=== PATIENT | female | born 1935 | race Caucasian/White ===

== ENCOUNTER 2021-04-01 15:34 | Inpatient (IN) | payer MEDICARE, BC, OTHER ==
[~2021-04-01] VITALS: Ht 167.6 cm; Wt 86.8 kg
[~2021-04-01 15:34] MED LIST: ACET325T9 PO; AMIO200T6 PO; ASCO500T3 PO; ASPI-886 PO; ATOR40TA59 PO; BUPR150T15 PO; CALC625T44 PO; CARV6.2511 PO; CYCL1DRO OP; DICY20TA30 PO; FERR325T14 PO; FURO20TA3 PO; LEVO88TA4 PO; MAGN296S68 PO; MAGN400T5 PO; MOXI3DRO22 OP; NITR50CA11 PO; PANT40TA77 PO; POTA20TA12 PO; TEMA30CA6 PO; TRAM50TA PO; VERA240C2 PO; WARF-31 PO
[2021-04-01] MEDS ORDERED: fentaNYL PF VIAL 100 MCG/2 ML VIAL IVP PRN (18:30)
[2021-04-01] MEDS ORDERED: ONDANSETRON ODT 4 MG TAB.RAPDIS. PO PRN (18:30)
[2021-04-01] MEDS ORDERED: PROP15DR EACHEYE (18:34)
[2021-04-01 19:15] VITALS: BP 149/62
[2021-04-01] MEDS: PATCH REMOVAL. MC SCH (21:00)
[2021-04-01] MEDS ORDERED: POLYVINYL ALCOHOL 1.4% OPHTH SOLUTION 15ML BOTTLE. OU SCH (21:00)
--- NOTE | 2021-04-01 21:00 | NUR ---
ADMIT NOTE The patient, BOO MARTINEZ, 85 y/o, F admitted by JEF LIANG MD, was given written information regarding hospital policies, unit procedures and contact persons. Patient transferred from [facility]; orders received from . Patient orientated to unit, admit packet reviewed and plan of care discussed. Patient A&O x2-3 with noted confusion; no c/o pain upon admit to unit. Patient is a poor historian and is unable to recall COVID or FLU vaccination history at this time(updated medical history obtained from [facility] records). Preferred pharmacy verified and medications reviewed. Patient now resting in bed, bed in lowest/locked position and call light within reach; no other needs voiced at this time.
[2021-04-01] MEDS: SYSTANE OU SCH (21:47)
--- NOTE | 2021-04-01 21:50 | NUR ---
Lidoderm patch not on patient's body; non-administered on eMAR.
[2021-04-01 23:31] VITALS: BP 137/64
[2021-04-01 23:34] LABS: BASO % 1 % (0-3); EOS # 0.1 x10^3/uL (0.0-0.7); EOS % 2 % (0-3); HEMATOCRIT 39.9 % (36.0-47.0); HEMOGLOBIN 13.1 g/dL (12.0-15.5); LYMPH # 0.7 x10^3/uL (1.0-4.8); LYMPH % 14 % (24-48); MEAN CORPUSCULAR HEMOGLOBIN 31 pg (25-35); MEAN CORPUSCULAR HGB CONC 33 g/dL (31-37); MEAN CORPUSCULAR VOLUME 95 fL (79-100); MONO # 0.5 x10^3/uL (0.0-1.1); MONO % 11 % (0-9); NEUT # 3.5 x10^3/uL (1.8-7.7); NEUT % 73 % (31-73); PLATELET COUNT 101 x10^3/uL (140-400); RED BLOOD COUNT 4.21 x10^6/uL (3.50-5.40); RED CELL DISTRIBUTION WIDTH 17.5 % (11.5-14.5); WHITE BLOOD COUNT 4.9 x10^3/uL (4.0-11.0)
[2021-04-01 23:43] LABS: PROTHROMBIN TIME PATIENT 20.4 SEC (11.7-14.0)
[2021-04-01 23:55] LABS: ALBUMIN 2.9 g/dL (3.4-5.0); CALCIUM 8.9 mg/dL (8.5-10.1); GFR 52.6; POTASSIUM 4.1 mmol/L (3.5-5.1); TOTAL BILIRUBIN 1.6 mg/dL (0.2-1.0); TOTAL PROTEIN 5.8 g/dL (6.4-8.2)
[2021-04-02 03:07] VITALS: BP 170/64
[2021-04-02 06:57] LABS: BASO % 1 % (0-3); EOS % 1 % (0-3); HEMATOCRIT 38.4 % (36.0-47.0); HEMOGLOBIN 12.7 g/dL (12.0-15.5); LYMPH # 0.7 x10^3/uL (1.0-4.8); LYMPH % 20 % (24-48); MEAN CORPUSCULAR HEMOGLOBIN 32 pg (25-35); MEAN CORPUSCULAR HGB CONC 33 g/dL (31-37); MEAN CORPUSCULAR VOLUME 96 fL (79-100); MONO # 0.5 x10^3/uL (0.0-1.1); MONO % 13 % (0-9); NEUT # 2.2 x10^3/uL (1.8-7.7); NEUT % 64 % (31-73); PLATELET COUNT 93 x10^3/uL (140-400); RED CELL DISTRIBUTION WIDTH 17.6 % (11.5-14.5); WHITE BLOOD COUNT 3.4 x10^3/uL (4.0-11.0)
[2021-04-02 07:00] VITALS: BP 140/71
[2021-04-02 07:05] LABS: PROTHROMBIN TIME PATIENT 21.7 SEC (11.7-14.0)
[2021-04-02 07:26] LABS: ALBUMIN 2.7 g/dL (3.4-5.0); CALCIUM 8.8 mg/dL (8.5-10.1); CREATININE 1.2 mg/dL (0.6-1.0); GFR 42.6; POTASSIUM 3.9 mmol/L (3.5-5.1); TOTAL BILIRUBIN 1.6 mg/dL (0.2-1.0); TOTAL PROTEIN 5.4 g/dL (6.4-8.2)
[2021-04-02] MEDS: SYSTANE OU SCH ×4 (09:00→20:53)
--- NOTE | 2021-04-02 10:07 | NUR ---
SW following. Discussed with RN, pt from [facility], 2L, clear liquid. RN ordering PT/OT and COVID. SW trying to reach [facility] to determine if pt would need a COVID swab to go there since she has had her vaccines and is from [facility]. SW will continue to follow.
[2021-04-02 11:00] VITALS: BP 138/64
[2021-04-02] MEDS: PANTOPRAZOLE IV PUSH 40 MG VIAL. IVP SCH (11:07)
[2021-04-02] MEDS: LIDOCAINE (700MG/PATCH) PATCH. TD SCH (11:08)
--- NOTE | 2021-04-02 11:12 | HP ---
ADMIT DATE: 04/01/2021 HISTORY OF PRESENT ILLNESS: The patient is an 85-year-old female patient who was admitted to [facility] with diffuse abdominal pain, worsened by eating and nausea for the last 2 days prior to admission. In the emergency room, the workup showed that the patient has subtle evidence of pancreatitis, some minimal swelling. However, her serum lipase has remained consistently within normal range. She was diagnosed with pancreatitis, which is questionable. She is also on Eliquis and apparently her symptoms coincided with switching her from Coumadin to Eliquis and therefore her Eliquis was discontinued and she was started on Coumadin with an overlap of Lovenox. As she continued to have abdominal pain, I did actually arrange for her to have a CT angio of the abdomen and pelvis, which showed that she had extensive calcific atherosclerosis; however, there was moderate atherosclerotic opacities identified in the celiac artery and superior mesenteric artery; however, the bilateral renal arteries are patent. The inferior mesenteric artery is patent. The bilateral common iliac arteries and internal and external iliac arteries are patent. She does have moderate atherosclerotic calcification identified in the aortic bifurcation. She also has numerous colonic diverticulosis and questionable fat stranding identified about the pancreas similar to prior exam, although she has multiple serum lipase measured and were all within normal range with a questionable pancreatic fullness and possible pancreatic tumor and therefore, the patient was transferred to [facility] for further evaluation and treatment. PAST MEDICAL HISTORY: Significant for numerous medical problems including hypertension, hyperlipidemia, hypothyroidism, generalized osteoarthritis, transient ischemic attack, senile macular degeneration. She is in fact legally blind. She has sick sinus syndrome, status post automatic implantable defibrillator cardioverter. She is also known to have factor V Leiden and had a history of DVT. At one point in time, she developed a hematoma in her right thigh and acute blood loss anemia at that time with the hemoglobin dropping down to 6.3 and 18.7. She received multiple units of packed RBCs and fresh frozen plasma to reverse the effect of Coumadin at that time. PAST SURGICAL HISTORY: Significant for vaginal hysterectomy, cholecystectomy, appendectomy, exploratory laparotomy, bilateral total knee arthroplasty, bilateral cataract extraction, laser photocoagulation. 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 She has had an AICD placed and colonoscopy with no evidence of any polyps. She had an inferior vena cava filter placed successfully. ALLERGIES: ALLERGIC TO PENICILLIN AND SULFA DRUGS. FAMILY HISTORY: One brother of colon cancer and CVA. Her sister of breast cancer. Mother of colon cancer and her father was alcoholic. She does not know him very well. SOCIAL HISTORY: She is . Her at the end of 2017. She quit smoking in 1994 after smoking for almost 30 years. She does not drink alcohol or use recreational drugs. She retired from [employer], currently lives at independent living facility at [facility]. MEDICATIONS: She is currently on the following medication. She is on dicyclomine 20 mg 3 times a day, tizanidine 4 mg at bedtime, apixaban 2.5 mg twice a day, atorvastatin calcium 10 mg at bedtime, isosorbide mononitrate 30 mg once a day, carvedilol 3.125 mg twice a day, hydrocodone/APAP 5/325 one tablet every 6 hours. She is on gabapentin 300 mg twice a day, gabapentin 200 mg at noon, duloxetine 60 mg once a day, potassium chloride 10 mEq once a day, furosemide 20 mg once a day, moxifloxacin one drop to both eyes 4 times a day, ____ one drop to both eyes 4 times a day, loperamide 2 mg 4 times a day. She is on Amitiza 24 mcg once a day, magnesium citrate 30 mL p.o. once, magnesium hydroxide for milk of magnesia 30 mL daily as needed, polyethylene glycol 17 grams as needed, senna-s 1 capsule at bedtime. She is on Protonix 40 mg once a day, lactobacillus casei 1 capsule once a day, linaclotide for Linzess 145 mcg once a day, conjugated estrogen, Premarin 0.5 grams vaginally twice weekly. She is on levothyroxine sodium 100 mcg p.o. daily, Lidoderm patch apply topically two batches every 12 hours. She is on Calmoseptine ointment apply topically to the leatha area, petrolatum white for Vaseline twice a day and Ocuvite for soft gel 1 capsule once a day. PHYSICAL EXAMINATION: GENERAL: On examining her this morning, she looked well and was clearly in no apparent respiratory distress. There was no pallor, jaundice, cyanosis, thyromegaly, jugular distention. No limb edema. VITAL SIGNS: Her heart rate was 84, blood pressure is 170/64, temperature was 98.3, respiratory rate was 18, and oxygen saturation 100% on 2 liters of oxygen. HEAD, EYES, EARS, NOSE, AND THROAT: Normocephalic, atraumatic. NECK: Supple. HEART: Showed normal first and second heart sounds. No gallop, rub or murmur. CHEST: Clear to auscultation, no crepitation or rhonchi. ABDOMEN: Distended, soft, nontender. NEUROLOGIC: She was legally blind. She has severe advanced senile macular degeneration; however, all other cranial nerves intact. She moves extremities without difficulty, although she is mostly bedbound, chair bound. LABORATORY DATA: Her lab work this morning showed a white cell count of 3400, hemoglobin 12.7, hematocrit 38, MCV 96 and platelet count of 93,000. Her chemistry showed a serum sodium 144, potassium 3.9, chloride 106, bicarbonate 32, anion gap of 6, BUN 17, creatinine 1.2. Estimated GFR was 42 mL per minute. Her glucose 118, calcium was 8.8, total bilirubin 1.6. ALT, alkaline phosphatase were normal. Total protein 5.4, albumin 2.7, serum lipase again was within normal range at 47. ASSESSMENT AND PLAN: The patient continued to complain of abdominal pain. She is on a clear liquid diet and continued to have this diffuse pain, although she is confused and her answers are not consistent. I did consult the operations accountant and also the general surgeon. I did order also the tumor marker or CA 19-9 and carcinoembryonic antigen. We are going to daily prothrombin time. I will continue with Lovenox overlap for today and once the INR is 2 to 2.5, we will discontinue Lovenox and continue with Coumadin. KASSIE/RIZWANA GOLD: Wilfrido TID: [id number]
[2021-04-02 15:00] VITALS: BP 138/62
--- NOTE | 2021-04-02 16:58 | PDOC2 ---
CONSULT Date of Consult Date of Consult DATE: 04/02/21 TIME: 16:56 Reason for Consult Reason for Consult: Abd pain-s/p becky Differential includes: PUD, chronc pancreatitis, pancreatic malignancy, and/or gastroparesis Rec Await Ca 19-9 levels PPI therapy for PUD caution prior to proceeding with any additional studies in view of patients co-morbidities Full note dictated Past Medical History Cardiovascular: AFIB, CAD, CHF, HTN, Hyperlipidemia CENTRAL NERVOUS SYSTEM: Periperal neuropathy, TIA Heme/Onc: Other Renal/: UTI, Other Endocrine: Hypothyroidism Past Surgical History Past Surgical History: Hysterectomy, Other Current Medications Current Medications Current Medications Enoxaparin Sodium (Lovenox 80mg Syringe) 80 mg Q12HR SQ Last administered on 04/02/21at 11:08; Start 04/01/21 at 21:00 Lidocaine (Lidoderm) 2 patch DAILY TD Last administered on 04/02/21at 11:08; Start 04/02/21 at 09:00 Ondansetron HCl (Zofran Odt) 4 mg PRN Q6HRS PRN PO NAUSEA/VOMITING; Start 04/01/21 at 18:30 Pantoprazole Sodium (PROTONIX VIAL for IV PUSH) 40 mg DAILYAC IVP Last administered on 04/02/21at 11:07; Start 04/02/21 at 07:30 Warfarin Sodium (Coumadin) 4 mg DAILY16 PO ; Start 04/02/21 at 16:00 Warfarin Sodium (Coumadin Per Physician) 1 each PRN DAILY PRN MC SEE COMMENTS Last administered on 04/02/21at 12:30; Start 04/01/21 at 18:30 Fentanyl Citrate (Fentanyl 2ml Vial) 25 mcg PRN Q3HRS PRN IVP PAIN; Start 04/01/21 at 18:30 Miscellaneous (Lidoderm Patch Removal) 1 ea QHS MC ; Start 04/01/21 at 21:00 Glycerin/ Hypromellose/ Polyethylene (Artificial Tears) 1 drop QID OU ; Start 04/01/21 at 21:00; Status Cancel Non-Formulary Medication (Systane) 1 ea QID OU Last administered on 04/02/21at 13:00; Start 04/01/21 at 21:00 Active Scripts Active Reported Systane 0.3-0.4% Eye Drops (Propylene Glycol/Peg 400) 15 Ml Drops 1 Drop EACHEYE QID Carvedilol (Carvedilol) 6.25 Mg Tablet 6.25 Mg PO BIDWMEALS Warfarin Sodium 5 Mg Tablet 5 Mg PO DAILY Furosemide 20 Mg Tablet 20 Mg PO DAILY Magnesium Citrate 296 Ml Solution 148 Ml PO DAILY PRN Fiber-Tabs (Calcium Polycarbophil) 625 Mg Tablet 625 Mg PO TID Potassium Chloride 20 Meq Tab.er.prt 20 Meq PO DAILY Restoril (Temazepam) 30 Mg Capsule 30 Mg PO HS PRN Protonix (Pantoprazole Sodium) 40 Mg Tablet.dr 40 Mg PO DAILY Restasis (Cyclosporine) 1 Each Droperette 1 Each OP BID Wellbutrin Xl (Bupropion Hcl) 150 Mg Tab.er.24h 150 Mg PO BID Amiodarone Hcl 200 Mg Tablet 200 Mg PO DAILY Levothyroxine Sodium 88 Mcg Tablet 88 Mcg PO DAILYAC Tylenol (Acetaminophen) 325 Mg Tablet 650 Mg PO TID PRN Magnesium Oxide 400 Mg Tablet 400 Mg PO DAILY Bentyl (Dicyclomine Hcl) 20 Mg Tablet 20 Mg PO TID Atorvastatin Calcium 40 Mg Tablet 40 Mg PO DAILY Aspirin Ec (Aspirin) 81 Mg Tablet.dr 81 Mg PO DAILY Ferrous Sulfate 325 Mg Tablet 325 Mg PO DAILY Ascorbic Acid 500 Mg Tablet 500 Mg PO DAILY Allergies Allergies: Coded Allergies: Penicillins (Verified Allergy, Intermediate, 06/01/16) Sulfa (Sulfonamide Antibiotics) (Verified Allergy, Intermediate, 06/01/16) sulfamethoxazole (Verified Allergy, Intermediate, 04/02/21) trimethoprim (Verified Allergy, Intermediate, 04/02/21) Vitals VITALS Vital Signs Date Time Temp Pulse Resp B/P (MAP) Pulse Ox O2 Delivery O2 Flow Rate FiO2 04/02/21 08:00 Nasal Cannula 2.0 04/02/21 03:07 98.3 84 18 170/64 (99) 100 98.3 Labs Labs Laboratory Tests Test 04/01/21 23:00 04/02/21 05:25 White Blood Count 4.9 x10^3/uL (4.0-11.0) 3.4 x10^3/uL (4.0-11.0) Red Blood Count 4.21 x10^6/uL (3.50-5.40) 4.00 x10^6/uL (3.50-5.40) Hemoglobin 13.1 g/dL (12.0-15.5) 12.7 g/dL (12.0-15.5) Hematocrit 39.9 % (36.0-47.0) 38.4 % (36.0-47.0) Mean Corpuscular Volume 95 fL (79-100) 96 fL (79-100) Mean Corpuscular Hemoglobin 31 pg (25-35) 32 pg (25-35) Mean Corpuscular Hemoglobin Concent 33 g/dL (31-37) 33 g/dL (31-37) Red Cell Distribution Width 17.5 % (11.5-14.5) 17.6 % (11.5-14.5) Platelet Count 101 x10^3/uL (140-400) 93 x10^3/uL (140-400) Neutrophils (%) (Auto) 73 % (31-73) 64 % (31-73) Lymphocytes (%) (Auto) 14 % (24-48) 20 % (24-48) Monocytes (%) (Auto) 11 % (0-9) 13 % (0-9) Eosinophils (%) (Auto) 2 % (0-3) 1 % (0-3) Basophils (%) (Auto) 1 % (0-3) 1 % (0-3) Neutrophils # (Auto) 3.5 x10^3/uL (1.8-7.7) 2.2 x10^3/uL (1.8-7.7) Lymphocytes # (Auto) 0.7 x10^3/uL (1.0-4.8) 0.7 x10^3/uL (1.0-4.8) Monocytes # (Auto) 0.5 x10^3/uL (0.0-1.1) 0.5 x10^3/uL (0.0-1.1) Eosinophils # (Auto) 0.1 x10^3/uL (0.0-0.7) 0.0 x10^3/uL (0.0-0.7) Basophils # (Auto) 0.0 x10^3/uL (0.0-0.2) 0.0 x10^3/uL (0.0-0.2) Prothrombin Time 20.4 SEC (11.7-14.0) 21.7 SEC (11.7-14.0) Prothromb Time International Ratio 1.8 (0.8-1.1) 1.9 (0.8-1.1) Sodium Level 138 mmol/L (136-145) 144 mmol/L (136-145) Potassium Level 4.1 mmol/L (3.5-5.1) 3.9 mmol/L (3.5-5.1) Chloride Level 105 mmol/L (98-107) 106 mmol/L (98-107) Carbon Dioxide Level 26 mmol/L (21-32) 32 mmol/L (21-32) Anion Gap 7 (6-14) 6 (6-14) Blood Urea Nitrogen 18 mg/dL (7-20) 17 mg/dL (7-20) Creatinine 1.0 mg/dL (0.6-1.0) 1.2 mg/dL (0.6-1.0) Estimated GFR (Cockcroft-Gault) 52.6 42.6 BUN/Creatinine Ratio 18 (6-20) 14 (6-20) Glucose Level 132 mg/dL (70-99) 118 mg/dL (70-99) Calcium Level 8.9 mg/dL (8.5-10.1) 8.8 mg/dL (8.5-10.1) Total Bilirubin 1.6 mg/dL (0.2-1.0) 1.6 mg/dL (0.2-1.0) Aspartate Amino Transf (AST/SGOT) 15 U/L (15-37) 13 U/L (15-37) Alanine Aminotransferase (ALT/SGPT) 12 U/L (14-59) 10 U/L (14-59) Alkaline Phosphatase 84 U/L (46-116) 75 U/L (46-116) Total Protein 5.8 g/dL (6.4-8.2) 5.4 g/dL (6.4-8.2) Albumin 2.9 g/dL (3.4-5.0) 2.7 g/dL (3.4-5.0) Albumin/Globulin Ratio 1.0 (1.0-1.7) 1.0 (1.0-1.7) Lipase 60 U/L (73-393) 47 U/L (73-393) Amylase Level 26 U/L (25-115) Laboratory Tests Test 04/01/21 23:00 04/02/21 05:25 White Blood Count 4.9 x10^3/uL (4.0-11.0) 3.4 x10^3/uL (4.0-11.0) Red Blood Count 4.21 x10^6/uL (3.50-5.40) 4.00 x10^6/uL (3.50-5.40) Hemoglobin 13.1 g/dL (12.0-15.5) 12.7 g/dL (12.0-15.5) Hematocrit 39.9 % (36.0-47.0) 38.4 % (36.0-47.0) Mean Corpuscular Volume 95 fL (79-100) 96 fL (79-100) Mean Corpuscular Hemoglobin 31 pg (25-35) 32 pg (25-35) Mean Corpuscular Hemoglobin Concent 33 g/dL (31-37) 33 g/dL (31-37) Red Cell Distribution Width 17.5 % (11.5-14.5) 17.6 % (11.5-14.5) Platelet Count 101 x10^3/uL (140-400) 93 x10^3/uL (140-400) Neutrophils (%) (Auto) 73 % (31-73) 64 % (31-73) Lymphocytes (%) (Auto) 14 % (24-48) 20 % (24-48) Monocytes (%) (Auto) 11 % (0-9) 13 % (0-9) Eosinophils (%) (Auto) 2 % (0-3) 1 % (0-3) Basophils (%) (Auto) 1 % (0-3) 1 % (0-3) Neutrophils # (Auto) 3.5 x10^3/uL (1.8-7.7) 2.2 x10^3/uL (1.8-7.7) Lymphocytes # (Auto) 0.7 x10^3/uL (1.0-4.8) 0.7 x10^3/uL (1.0-4.8) Monocytes # (Auto) 0.5 x10^3/uL (0.0-1.1) 0.5 x10^3/uL (0.0-1.1) Eosinophils # (Auto) 0.1 x10^3/uL (0.0-0.7) 0.0 x10^3/uL (0.0-0.7) Basophils # (Auto) 0.0 x10^3/uL (0.0-0.2) 0.0 x10^3/uL (0.0-0.2) Prothrombin Time 20.4 SEC (11.7-14.0) 21.7 SEC (11.7-14.0) Prothromb Time International Ratio 1.8 (0.8-1.1) 1.9 (0.8-1.1) Sodium Level 138 mmol/L (136-145) 144 mmol/L (136-145) Potassium Level 4.1 mmol/L (3.5-5.1) 3.9 mmol/L (3.5-5.1) Chloride Level 105 mmol/L (98-107) 106 mmol/L (98-107) Carbon Dioxide Level 26 mmol/L (21-32) 32 mmol/L (21-32) Anion Gap 7 (6-14) 6 (6-14) Blood Urea Nitrogen 18 mg/dL (7-20) 17 mg/dL (7-20) Creatinine 1.0 mg/dL (0.6-1.0) 1.2 mg/dL (0.6-1.0) Estimated GFR (Cockcroft-Gault) 52.6 42.6 BUN/Creatinine Ratio 18 (6-20) 14 (6-20) Glucose Level 132 mg/dL (70-99) 118 mg/dL (70-99) Calcium Level 8.9 mg/dL (8.5-10.1) 8.8 mg/dL (8.5-10.1) Total Bilirubin 1.6 mg/dL (0.2-1.0) 1.6 mg/dL (0.2-1.0) Aspartate Amino Transf (AST/SGOT) 15 U/L (15-37) 13 U/L (15-37) Alanine Aminotransferase (ALT/SGPT) 12 U/L (14-59) 10 U/L (14-59) Alkaline Phosphatase 84 U/L (46-116) 75 U/L (46-116) Total Protein 5.8 g/dL (6.4-8.2) 5.4 g/dL (6.4-8.2) Albumin 2.9 g/dL (3.4-5.0) 2.7 g/dL (3.4-5.0) Albumin/Globulin Ratio 1.0 (1.0-1.7) 1.0 (1.0-1.7) Lipase 60 U/L (73-393) 47 U/L (73-393) Amylase Level 26 U/L (25-115) KENRICK HUTSON MD Apr 02, 2021 16:58
[2021-04-02] MEDS: WARFARIN 4 MG TABLET. PO SCH (17:14)
[2021-04-02 19:00] VITALS: BP 146/65
--- NOTE | 2021-04-02 19:41 | PDOC2 ---
CONSULT Date of Consult Date of Consult DATE: 04/02/21 TIME: 19:34 Reason for Consult Reason for Consult: pancreatic mass Referring Physician Referring Physician: Dr. Whalen Identification/Chief Complaint Chief Complaint not feeling well Source Source: Chart review, Patient History of Present Illness Reason for Visit: 85 yo F with c/o diffuse abd pain and N/V. Admitted at [facility] and transferred to [facility] for evaluation. She was seen in her hospital room and she is concerned that she is not getting better, although she is poor historian about what she is not getting better about. Past Medical History Cardiovascular: AFIB, CAD, CHF, HTN, Hyperlipidemia CENTRAL NERVOUS SYSTEM: Periperal neuropathy, TIA Heme/Onc: Other Renal/: UTI, Other Endocrine: Hypothyroidism Past Surgical History Past Surgical History: Hysterectomy, Other Family History Family History: No Significant Social History No Current Medications Current Medications Current Medications Enoxaparin Sodium (Lovenox 80mg Syringe) 80 mg Q12HR SQ Last administered on 04/02/21at 11:08; Start 04/01/21 at 21:00 Lidocaine (Lidoderm) 2 patch DAILY TD Last administered on 04/02/21at 11:08; Start 04/02/21 at 09:00 Ondansetron HCl (Zofran Odt) 4 mg PRN Q6HRS PRN PO NAUSEA/VOMITING; Start 04/01/21 at 18:30 Pantoprazole Sodium (PROTONIX VIAL for IV PUSH) 40 mg DAILYAC IVP Last administered on 04/02/21at 11:07; Start 04/02/21 at 07:30 Warfarin Sodium (Coumadin) 4 mg DAILY16 PO Last administered on 04/02/21at 17:14; Start 04/02/21 at 16:00 Warfarin Sodium (Coumadin Per Physician) 1 each PRN DAILY PRN MC SEE COMMENTS Last administered on 04/02/21at 12:30; Start 04/01/21 at 18:30 Fentanyl Citrate (Fentanyl 2ml Vial) 25 mcg PRN Q3HRS PRN IVP PAIN; Start 04/01/21 at 18:30 Miscellaneous (Lidoderm Patch Removal) 1 ea QHS MC ; Start 04/01/21 at 21:00 Glycerin/ Hypromellose/ Polyethylene (Artificial Tears) 1 drop QID OU ; Start 04/01/21 at 21:00; Status Cancel Non-Formulary Medication (Systane) 1 ea QID OU Last administered on 04/02/21at 17:00; Start 04/01/21 at 21:00 Active Scripts Active Reported Systane 0.3-0.4% Eye Drops (Propylene Glycol/Peg 400) 15 Ml Drops 1 Drop EACHEYE QID Carvedilol (Carvedilol) 6.25 Mg Tablet 6.25 Mg PO BIDWMEALS Warfarin Sodium 5 Mg Tablet 5 Mg PO DAILY Furosemide 20 Mg Tablet 20 Mg PO DAILY Magnesium Citrate 296 Ml Solution 148 Ml PO DAILY PRN Fiber-Tabs (Calcium Polycarbophil) 625 Mg Tablet 625 Mg PO TID Potassium Chloride 20 Meq Tab.er.prt 20 Meq PO DAILY Restoril (Temazepam) 30 Mg Capsule 30 Mg PO HS PRN Protonix (Pantoprazole Sodium) 40 Mg Tablet.dr 40 Mg PO DAILY Restasis (Cyclosporine) 1 Each Droperette 1 Each OP BID Wellbutrin Xl (Bupropion Hcl) 150 Mg Tab.er.24h 150 Mg PO BID Amiodarone Hcl 200 Mg Tablet 200 Mg PO DAILY Levothyroxine Sodium 88 Mcg Tablet 88 Mcg PO DAILYAC Tylenol (Acetaminophen) 325 Mg Tablet 650 Mg PO TID PRN Magnesium Oxide 400 Mg Tablet 400 Mg PO DAILY Bentyl (Dicyclomine Hcl) 20 Mg Tablet 20 Mg PO TID Atorvastatin Calcium 40 Mg Tablet 40 Mg PO DAILY Aspirin Ec (Aspirin) 81 Mg Tablet.dr 81 Mg PO DAILY Ferrous Sulfate 325 Mg Tablet 325 Mg PO DAILY Ascorbic Acid 500 Mg Tablet 500 Mg PO DAILY Allergies Allergies: Coded Allergies: Penicillins (Verified Allergy, Intermediate, 06/01/16) Sulfa (Sulfonamide Antibiotics) (Verified Allergy, Intermediate, 06/01/16) sulfamethoxazole (Verified Allergy, Intermediate, 04/02/21) trimethoprim (Verified Allergy, Intermediate, 04/02/21) ROS Gastrointestinal: Yes Abdominal Pain Physical Exam General: Alert, No acute distress, Other (elderly, not oriented to time) HEENT: Atraumatic, EOMI Lungs: Normal air movement Abdomen: Soft, No tenderness Extremities: No clubbing, No cyanosis Skin: No rashes, No breakdown Neuro: Normal speech, Sensation intact Psych/Mental Status: Mood NL Vitals VITALS Vital Signs Date Time Temp Pulse Resp B/P (MAP) Pulse Ox O2 Delivery O2 Flow Rate FiO2 04/02/21 15:00 97.9 78 18 138/62 (87) 90 Nasal Cannula 2.0 97.9 Labs Labs Laboratory Tests Test 04/01/21 23:00 04/02/21 05:25 White Blood Count 4.9 x10^3/uL (4.0-11.0) 3.4 x10^3/uL (4.0-11.0) Red Blood Count 4.21 x10^6/uL (3.50-5.40) 4.00 x10^6/uL (3.50-5.40) Hemoglobin 13.1 g/dL (12.0-15.5) 12.7 g/dL (12.0-15.5) Hematocrit 39.9 % (36.0-47.0) 38.4 % (36.0-47.0) Mean Corpuscular Volume 95 fL (79-100) 96 fL (79-100) Mean Corpuscular Hemoglobin 31 pg (25-35) 32 pg (25-35) Mean Corpuscular Hemoglobin Concent 33 g/dL (31-37) 33 g/dL (31-37) Red Cell Distribution Width 17.5 % (11.5-14.5) 17.6 % (11.5-14.5) Platelet Count 101 x10^3/uL (140-400) 93 x10^3/uL (140-400) Neutrophils (%) (Auto) 73 % (31-73) 64 % (31-73) Lymphocytes (%) (Auto) 14 % (24-48) 20 % (24-48) Monocytes (%) (Auto) 11 % (0-9) 13 % (0-9) Eosinophils (%) (Auto) 2 % (0-3) 1 % (0-3) Basophils (%) (Auto) 1 % (0-3) 1 % (0-3) Neutrophils # (Auto) 3.5 x10^3/uL (1.8-7.7) 2.2 x10^3/uL (1.8-7.7) Lymphocytes # (Auto) 0.7 x10^3/uL (1.0-4.8) 0.7 x10^3/uL (1.0-4.8) Monocytes # (Auto) 0.5 x10^3/uL (0.0-1.1) 0.5 x10^3/uL (0.0-1.1) Eosinophils # (Auto) 0.1 x10^3/uL (0.0-0.7) 0.0 x10^3/uL (0.0-0.7) Basophils # (Auto) 0.0 x10^3/uL (0.0-0.2) 0.0 x10^3/uL (0.0-0.2) Prothrombin Time 20.4 SEC (11.7-14.0) 21.7 SEC (11.7-14.0) Prothromb Time International Ratio 1.8 (0.8-1.1) 1.9 (0.8-1.1) Sodium Level 138 mmol/L (136-145) 144 mmol/L (136-145) Potassium Level 4.1 mmol/L (3.5-5.1) 3.9 mmol/L (3.5-5.1) Chloride Level 105 mmol/L (98-107) 106 mmol/L (98-107) Carbon Dioxide Level 26 mmol/L (21-32) 32 mmol/L (21-32) Anion Gap 7 (6-14) 6 (6-14) Blood Urea Nitrogen 18 mg/dL (7-20) 17 mg/dL (7-20) Creatinine 1.0 mg/dL (0.6-1.0) 1.2 mg/dL (0.6-1.0) Estimated GFR (Cockcroft-Gault) 52.6 42.6 BUN/Creatinine Ratio 18 (6-20) 14 (6-20) Glucose Level 132 mg/dL (70-99) 118 mg/dL (70-99) Calcium Level 8.9 mg/dL (8.5-10.1) 8.8 mg/dL (8.5-10.1) Total Bilirubin 1.6 mg/dL (0.2-1.0) 1.6 mg/dL (0.2-1.0) Aspartate Amino Transf (AST/SGOT) 15 U/L (15-37) 13 U/L (15-37) Alanine Aminotransferase (ALT/SGPT) 12 U/L (14-59) 10 U/L (14-59) Alkaline Phosphatase 84 U/L (46-116) 75 U/L (46-116) Total Protein 5.8 g/dL (6.4-8.2) 5.4 g/dL (6.4-8.2) Albumin 2.9 g/dL (3.4-5.0) 2.7 g/dL (3.4-5.0) Albumin/Globulin Ratio 1.0 (1.0-1.7) 1.0 (1.0-1.7) Lipase 60 U/L (73-393) 47 U/L (73-393) Amylase Level 26 U/L (25-115) Laboratory Tests Test 04/01/21 23:00 04/02/21 05:25 White Blood Count 4.9 x10^3/uL (4.0-11.0) 3.4 x10^3/uL (4.0-11.0) Red Blood Count 4.21 x10^6/uL (3.50-5.40) 4.00 x10^6/uL (3.50-5.40) Hemoglobin 13.1 g/dL (12.0-15.5) 12.7 g/dL (12.0-15.5) Hematocrit 39.9 % (36.0-47.0) 38.4 % (36.0-47.0) Mean Corpuscular Volume 95 fL (79-100) 96 fL (79-100) Mean Corpuscular Hemoglobin 31 pg (25-35) 32 pg (25-35) Mean Corpuscular Hemoglobin Concent 33 g/dL (31-37) 33 g/dL (31-37) Red Cell Distribution Width 17.5 % (11.5-14.5) 17.6 % (11.5-14.5) Platelet Count 101 x10^3/uL (140-400) 93 x10^3/uL (140-400) Neutrophils (%) (Auto) 73 % (31-73) 64 % (31-73) Lymphocytes (%) (Auto) 14 % (24-48) 20 % (24-48) Monocytes (%) (Auto) 11 % (0-9) 13 % (0-9) Eosinophils (%) (Auto) 2 % (0-3) 1 % (0-3) Basophils (%) (Auto) 1 % (0-3) 1 % (0-3) Neutrophils # (Auto) 3.5 x10^3/uL (1.8-7.7) 2.2 x10^3/uL (1.8-7.7) Lymphocytes # (Auto) 0.7 x10^3/uL (1.0-4.8) 0.7 x10^3/uL (1.0-4.8) Monocytes # (Auto) 0.5 x10^3/uL (0.0-1.1) 0.5 x10^3/uL (0.0-1.1) Eosinophils # (Auto) 0.1 x10^3/uL (0.0-0.7) 0.0 x10^3/uL (0.0-0.7) Basophils # (Auto) 0.0 x10^3/uL (0.0-0.2) 0.0 x10^3/uL (0.0-0.2) Prothrombin Time 20.4 SEC (11.7-14.0) 21.7 SEC (11.7-14.0) Prothromb Time International Ratio 1.8 (0.8-1.1) 1.9 (0.8-1.1) Sodium Level 138 mmol/L (136-145) 144 mmol/L (136-145) Potassium Level 4.1 mmol/L (3.5-5.1) 3.9 mmol/L (3.5-5.1) Chloride Level 105 mmol/L (98-107) 106 mmol/L (98-107) Carbon Dioxide Level 26 mmol/L (21-32) 32 mmol/L (21-32) Anion Gap 7 (6-14) 6 (6-14) Blood Urea Nitrogen 18 mg/dL (7-20) 17 mg/dL (7-20) Creatinine 1.0 mg/dL (0.6-1.0) 1.2 mg/dL (0.6-1.0) Estimated GFR (Cockcroft-Gault) 52.6 42.6 BUN/Creatinine Ratio 18 (6-20) 14 (6-20) Glucose Level 132 mg/dL (70-99) 118 mg/dL (70-99) Calcium Level 8.9 mg/dL (8.5-10.1) 8.8 mg/dL (8.5-10.1) Total Bilirubin 1.6 mg/dL (0.2-1.0) 1.6 mg/dL (0.2-1.0) Aspartate Amino Transf (AST/SGOT) 15 U/L (15-37) 13 U/L (15-37) Alanine Aminotransferase (ALT/SGPT) 12 U/L (14-59) 10 U/L (14-59) Alkaline Phosphatase 84 U/L (46-116) 75 U/L (46-116) Total Protein 5.8 g/dL (6.4-8.2) 5.4 g/dL (6.4-8.2) Albumin 2.9 g/dL (3.4-5.0) 2.7 g/dL (3.4-5.0) Albumin/Globulin Ratio 1.0 (1.0-1.7) 1.0 (1.0-1.7) Lipase 60 U/L (73-393) 47 U/L (73-393) Amylase Level 26 U/L (25-115) Images Images CT with concern for pancreatitic fullness Assessment/Plan Assessment/Plan pancreatitis certainly possible to have a mass. However, pt represents a poor surgical candidate and further investigation would probably not change this. Percutaneous biopsy would probably have low yield and risk exacerbating her issues. Agree with w/u per GI. Thanks for consult! ANNITA URBINA MD Apr 02, 2021 19:41
[2021-04-02] MEDS: PATCH REMOVAL. MC SCH (20:53)
--- NOTE | 2021-04-02 20:55 | NUR ---
Lidoderm patch not on patient's body; non-administered on eMAR.
[2021-04-02 23:00] VITALS: BP 147/61
[2021-04-03 03:00] VITALS: BP 155/80
[2021-04-03 07:10] VITALS: BP 120/78
[2021-04-03 07:55] LABS: PROTHROMBIN TIME PATIENT 25.3 SEC (11.7-14.0)
[2021-04-03] MEDS: SYSTANE OU SCH ×4 (08:10→21:36)
[2021-04-03] MEDS: PANTOPRAZOLE IV PUSH 40 MG VIAL. IVP SCH (08:10)
[2021-04-03] MEDS: LIDOCAINE (700MG/PATCH) PATCH. TD SCH (08:11)
[2021-04-03 08:12] LABS: ALBUMIN 2.5 g/dL (3.4-5.0); ALBUMIN/GLOBULIN RATIO 0.9 (1.0-1.7); CALCIUM 8.9 mg/dL (8.5-10.1); CREATININE 0.9 mg/dL (0.6-1.0); GFR 59.4; POTASSIUM 3.9 mmol/L (3.5-5.1); TOTAL BILIRUBIN 1.3 mg/dL (0.2-1.0); TOTAL PROTEIN 5.3 g/dL (6.4-8.2)
--- NOTE | 2021-04-03 08:17 | CONS ---
DATE OF CONSULTATION: 04/02/2021 GASTROENTEROLOGY CONSULTATION REFERRING PHYSICIAN: Dr. Whalen. REASON FOR CONSULTATION: Abdominal pain. HISTORY OF PRESENT ILLNESS: This is an 85-year-old female whose past medical history is significant for hypertension, hyperlipidemia, hypothyroidism, osteoporosis, history of TIAs, macular degeneration as well as possible early dementia, has got sick sinus syndrome, status post defibrillator-cardioverter, factor V Leiden deficiency, and history of DVTs, was transferred to [facility] for further evaluation of abdominal pain. The patient was rather combative and uncooperative this morning when seen on rounds. She states that she had nothing wrong, did not have any pain while I was there evaluating her and limited abdominal exam revealed normoactive bowel sounds with mild epigastric tenderness. She, otherwise, gives no additional history presently. PAST MEDICAL HISTORY: Hypertension, hyperlipidemia, hypothyroidism, osteoporosis, TIAs, macular degeneration, sick sinus syndrome, status post AICD, factor V and Leiden deficiency, status post hysterectomy, cholecystectomy, appendectomy, exploratory laparotomy, knee arthroplasties, cataract extractions, and laser photocoagulation. ALLERGIES: PENICILLIN AND SULFA. FAMILY HISTORY: There is a family history of colon cancer and breast cancer with a brother and sister. MEDICATIONS: Presently include warfarin, lidocaine, pantoprazole, Lidoderm, Lovenox, fentanyl, and warfarin. REVIEW OF SYSTEMS: Per records. PHYSICAL EXAMINATION: GENERAL: Reveals a combative white female who is uncooperative. VITAL SIGNS: Temperature is 98.3, pulse 84, respiratory rate 18, and blood pressure is 150/64. LUNGS: Clear. CARDIOVASCULAR: Reveals an S1, S2, without S3, S4 or appreciable murmur. ABDOMEN: With a defibrillator noted. Abdominal exam reveals normoactive bowel sounds with epigastric tenderness to palpation with multiple surgical incisions. EXTREMITIES: No cyanosis, clubbing, or edema. LABORATORY DATA: Hemoglobin is 12.7, hematocrit 38.4, white count 3.4, and platelet count is 93,000. Sodium 144, potassium 3.9, chloride 106, BUN is 17, creatinine 1.2, glucose is 118, calcium is 8.8, total bilirubin is 1.6, AST of 13, ALT of 10, alk phos of 75, total protein of 5.4, albumin of 2.7, amylase of 26, and lipase is 47. Previous imaging revealed on CTA, no occlusion of the celiac arteries. There is some mild fullness in the pancreatic head. CA 19-9 level is presently pending. IMPRESSION AND RECOMMENDATIONS: Abdominal pain, etiology is to be determined, status post cholecystectomy. Differential includes chronic pancreatitis, malignancy, and possible peptic ulcer disease. Therefore, we will recommend medical therapy pending CA 19-9 levels. In view of the patient's other comorbidities, I am not sure that additional studies such as an EUS or biopsies would be warranted. RENE/LUKE/COMFORT DR: Ruby TID: [id number]
--- NOTE | 2021-04-03 09:24 | PN ---
DATE: 04/03/2021 SUBJECTIVE: The patient is resting flat, comfortably in bed, in no apparent respiratory distress. She continued to complain of abdominal pain. Said that she is scared to eat, although she does not like taking the liquid diet. PHYSICAL EXAMINATION: GENERAL: When I examined her, she looked well and was clearly in no apparent respiratory distress. There was no pallor, jaundice, cyanosis, or thyromegaly. No jugular venous distention. No lower limb edema. VITAL SIGNS: Her heart rate was 85, blood pressure is 120/78, temperature was 98.3, respiratory rate was 18 and oxygen saturation was 90%. HEAD, EYES, EARS, NOSE AND THROAT: Normocephalic, atraumatic. NECK: Supple. HEART: Showed normal first and second heart sounds, no gallop, murmur. CHEST: Clear to auscultation, no crepitation or rhonchi. ABDOMEN: Diffusely tender. No guarding or rigidity. No organomegaly. All hernial orifice intact. Bowel sounds normal. NEUROLOGIC: She is awake, alert, legally blind. All her cranial nerves intact. She moves her extremities without difficulty, although she is mostly bedbound. LABORATORY DATA: Her intake and output are incompletely recorded. Her lab work this morning showed that her serum sodium is 146, potassium 3.9, chloride 109, bicarbonate 31, anion gap of 6, BUN 13, creatinine 0.9. Estimated GFR was 59 mL per minute. Her glucose was 96, calcium was 8.9. Total bilirubin slightly elevated. AST, ALT, alkaline phosphatase were normal. Total protein 5.3, albumin was 2.5, serum lipase has been consistently low. ASSESSMENT AND PLAN: Abdominal pain, the etiology of which is not clear. She is status post cholecystectomy. ____ although CT scan showed evidence of fullness of the pancreas, her serum lipase has been consistently low. There is a possibility of pancreatic cancer and also peptic ulcer disease. She is now on a proton pump inhibitor. The patient has multiple other medical problems including hypertension, hyperlipidemia, hypothyroidism, generalized osteoarthritis, episode of transient ischemic attack. 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 She has also sick sinus syndrome for which she has automated implantable defibrillator cardioverter and she has factor V Leiden for which she is now on Coumadin. Her INR is within therapeutic range. I will discontinue Lovenox. Meanwhile, continue with PPI and await the result of the CEA, CA 19-9. KASSIE/RIZWANA DR: Wilfrido TID: [id number]
[2021-04-03 14:12] VITALS: BP 158/64
[2021-04-03 14:14] LABS: CEA 3.9 ng/mL (0.0-4.7)
[2021-04-03] MEDS: WARFARIN 4 MG TABLET. PO SCH (16:42)
--- NOTE | 2021-04-03 17:44 | PDOC ---
SURGICAL PROGRESS NOTE DATE: 04/03/21 TIME: 17:42 Subjective Pt with c/o epistaxis, min abd pain Vital Signs Vital Signs Date Time Temp Pulse Resp B/P (MAP) Pulse Ox O2 Delivery O2 Flow Rate FiO2 04/03/21 14:12 97.4 83 18 158/64 (95) 92 97.4 04/03/21 07:30 Nasal Cannula 2.0 I&O Intake and Output 04/03/21 07:00 Intake Total 750 ml Balance 750 ml Intake Oral 750 ml # Voids 5 # Bowel Movements 1 General: Alert, No acute distress HEENT: Other (some epistaxis) Abdomen: Soft, No tenderness Labs Laboratory Tests Test 04/01/21 23:00 04/02/21 05:25 04/03/21 05:45 White Blood Count 4.9 x10^3/uL (4.0-11.0) 3.4 x10^3/uL (4.0-11.0) Red Blood Count 4.21 x10^6/uL (3.50-5.40) 4.00 x10^6/uL (3.50-5.40) Hemoglobin 13.1 g/dL (12.0-15.5) 12.7 g/dL (12.0-15.5) Hematocrit 39.9 % (36.0-47.0) 38.4 % (36.0-47.0) Mean Corpuscular Volume 95 fL (79-100) 96 fL (79-100) Mean Corpuscular Hemoglobin 31 pg (25-35) 32 pg (25-35) Mean Corpuscular Hemoglobin Concent 33 g/dL (31-37) 33 g/dL (31-37) Red Cell Distribution Width 17.5 % (11.5-14.5) 17.6 % (11.5-14.5) Platelet Count 101 x10^3/uL (140-400) 93 x10^3/uL (140-400) Neutrophils (%) (Auto) 73 % (31-73) 64 % (31-73) Lymphocytes (%) (Auto) 14 % (24-48) 20 % (24-48) Monocytes (%) (Auto) 11 % (0-9) 13 % (0-9) Eosinophils (%) (Auto) 2 % (0-3) 1 % (0-3) Basophils (%) (Auto) 1 % (0-3) 1 % (0-3) Neutrophils # (Auto) 3.5 x10^3/uL (1.8-7.7) 2.2 x10^3/uL (1.8-7.7) Lymphocytes # (Auto) 0.7 x10^3/uL (1.0-4.8) 0.7 x10^3/uL (1.0-4.8) Monocytes # (Auto) 0.5 x10^3/uL (0.0-1.1) 0.5 x10^3/uL (0.0-1.1) Eosinophils # (Auto) 0.1 x10^3/uL (0.0-0.7) 0.0 x10^3/uL (0.0-0.7) Basophils # (Auto) 0.0 x10^3/uL (0.0-0.2) 0.0 x10^3/uL (0.0-0.2) Prothrombin Time 20.4 SEC (11.7-14.0) 21.7 SEC (11.7-14.0) 25.3 SEC (11.7-14.0) Prothromb Time International Ratio 1.8 (0.8-1.1) 1.9 (0.8-1.1) 2.3 (0.8-1.1) Sodium Level 138 mmol/L (136-145) 144 mmol/L (136-145) 146 mmol/L (136-145) Potassium Level 4.1 mmol/L (3.5-5.1) 3.9 mmol/L (3.5-5.1) 3.9 mmol/L (3.5-5.1) Chloride Level 105 mmol/L (98-107) 106 mmol/L (98-107) 109 mmol/L (98-107) Carbon Dioxide Level 26 mmol/L (21-32) 32 mmol/L (21-32) 31 mmol/L (21-32) Anion Gap 7 (6-14) 6 (6-14) 6 (6-14) Blood Urea Nitrogen 18 mg/dL (7-20) 17 mg/dL (7-20) 13 mg/dL (7-20) Creatinine 1.0 mg/dL (0.6-1.0) 1.2 mg/dL (0.6-1.0) 0.9 mg/dL (0.6-1.0) Estimated GFR (Cockcroft-Gault) 52.6 42.6 59.4 BUN/Creatinine Ratio 18 (6-20) 14 (6-20) 14 (6-20) Glucose Level 132 mg/dL (70-99) 118 mg/dL (70-99) 96 mg/dL (70-99) Calcium Level 8.9 mg/dL (8.5-10.1) 8.8 mg/dL (8.5-10.1) 8.9 mg/dL (8.5-10.1) Total Bilirubin 1.6 mg/dL (0.2-1.0) 1.6 mg/dL (0.2-1.0) 1.3 mg/dL (0.2-1.0) Aspartate Amino Transf (AST/SGOT) 15 U/L (15-37) 13 U/L (15-37) 15 U/L (15-37) Alanine Aminotransferase (ALT/SGPT) 12 U/L (14-59) 10 U/L (14-59) 9 U/L (14-59) Alkaline Phosphatase 84 U/L (46-116) 75 U/L (46-116) 72 U/L (46-116) Total Protein 5.8 g/dL (6.4-8.2) 5.4 g/dL (6.4-8.2) 5.3 g/dL (6.4-8.2) Albumin 2.9 g/dL (3.4-5.0) 2.7 g/dL (3.4-5.0) 2.5 g/dL (3.4-5.0) Albumin/Globulin Ratio 1.0 (1.0-1.7) 1.0 (1.0-1.7) 0.9 (1.0-1.7) Lipase 60 U/L (73-393) 47 U/L (73-393) Carcinoembryonic Antigen 3.9 ng/mL (0.0-4.7) CA 19-9 Antigen 10 U/mL (0-35) Amylase Level 26 U/L (25-115) Laboratory Tests Test 04/03/21 05:45 Prothrombin Time 25.3 SEC (11.7-14.0) Prothromb Time International Ratio 2.3 (0.8-1.1) Sodium Level 146 mmol/L (136-145) Potassium Level 3.9 mmol/L (3.5-5.1) Chloride Level 109 mmol/L (98-107) Carbon Dioxide Level 31 mmol/L (21-32) Anion Gap 6 (6-14) Blood Urea Nitrogen 13 mg/dL (7-20) Creatinine 0.9 mg/dL (0.6-1.0) Estimated GFR (Cockcroft-Gault) 59.4 BUN/Creatinine Ratio 14 (6-20) Glucose Level 96 mg/dL (70-99) Calcium Level 8.9 mg/dL (8.5-10.1) Total Bilirubin 1.3 mg/dL (0.2-1.0) Aspartate Amino Transf (AST/SGOT) 15 U/L (15-37) Alanine Aminotransferase (ALT/SGPT) 9 U/L (14-59) Alkaline Phosphatase 72 U/L (46-116) Total Protein 5.3 g/dL (6.4-8.2) Albumin 2.5 g/dL (3.4-5.0) Albumin/Globulin Ratio 0.9 (1.0-1.7) Problem List possible pancreatic mass CA 19-9 not elevated poor candidate for any intervention consider biopsy percutaneous, but with risk Justicifation of Admission Dx: Justifications for Admission: Justification of Admission Dx: N/A ANNITA URBINA MD Apr 03, 2021 17:44
[2021-04-03 19:20] VITALS: BP 146/70
[2021-04-03] MEDS: PATCH REMOVAL. MC SCH (21:00)
[2021-04-03 23:19] VITALS: BP 140/80
[2021-04-04 03:19] VITALS: BP 152/68
[2021-04-04 07:14] VITALS: BP 140/71
[2021-04-04 08:26] LABS: PROTHROMBIN TIME PATIENT 26.4 SEC (11.7-14.0)
[2021-04-04] MEDS: PANTOPRAZOLE IV PUSH 40 MG VIAL. IVP SCH (08:30)
[2021-04-04] MEDS: SYSTANE OU SCH ×4 (08:30→21:37)
[2021-04-04] MEDS: ACETAMINOPHEN 325 MG TABLET. PO PRN (08:30)
[2021-04-04] MEDS: LIDOCAINE (700MG/PATCH) PATCH. TD SCH (08:31)
[2021-04-04 10:33] VITALS: BP 123/62
--- NOTE | 2021-04-04 14:10 | PDOC ---
SURGICAL PROGRESS NOTE DATE: 04/04/21 TIME: 14:08 Subjective Pt without new c/o Vital Signs Vital Signs Date Time Temp Pulse Resp B/P (MAP) Pulse Ox O2 Delivery O2 Flow Rate FiO2 04/04/21 10:33 97.4 80 18 123/62 (82) 98 Nasal Cannula 2.0 97.4 I&O Intake and Output 04/04/21 06:59 Intake Total 480 ml Output Total 250 ml Balance 230 ml Intake Oral 480 ml Output Urine Total 250 ml # Voids 4 General: Alert, Cooperative, No acute distress Abdomen: Soft, No tenderness Labs Laboratory Tests Test 04/03/21 05:45 04/04/21 06:25 Prothrombin Time 25.3 SEC (11.7-14.0) 26.4 SEC (11.7-14.0) Prothromb Time International Ratio 2.3 (0.8-1.1) 2.4 (0.8-1.1) Sodium Level 146 mmol/L (136-145) Potassium Level 3.9 mmol/L (3.5-5.1) Chloride Level 109 mmol/L (98-107) Carbon Dioxide Level 31 mmol/L (21-32) Anion Gap 6 (6-14) Blood Urea Nitrogen 13 mg/dL (7-20) Creatinine 0.9 mg/dL (0.6-1.0) Estimated GFR (Cockcroft-Gault) 59.4 BUN/Creatinine Ratio 14 (6-20) Glucose Level 96 mg/dL (70-99) Calcium Level 8.9 mg/dL (8.5-10.1) Total Bilirubin 1.3 mg/dL (0.2-1.0) Aspartate Amino Transf (AST/SGOT) 15 U/L (15-37) Alanine Aminotransferase (ALT/SGPT) 9 U/L (14-59) Alkaline Phosphatase 72 U/L (46-116) Total Protein 5.3 g/dL (6.4-8.2) Albumin 2.5 g/dL (3.4-5.0) Albumin/Globulin Ratio 0.9 (1.0-1.7) Laboratory Tests Test 04/04/21 06:25 Prothrombin Time 26.4 SEC (11.7-14.0) Prothromb Time International Ratio 2.4 (0.8-1.1) Assessment/Plan abd pain Ca 19-9 not elevated agree with w/u per GI, but additional intervention with risk Justicifation of Admission Dx: Justifications for Admission: Justification of Admission Dx: N/A ANNITA URBINA MD Apr 04, 2021 14:10
--- NOTE | 2021-04-04 14:14 | PDOC ---
GI PROGRESS NOTES Date of Service: Date/Time DATE: 04/04/21 TIME: 14:12 Subjective Subjective Tolerating diet, abdominal pain has improved. Objective Vitals Vital Signs Date Time Temp Pulse Resp B/P (MAP) Pulse Ox O2 Delivery O2 Flow Rate FiO2 04/04/21 10:33 97.4 80 18 123/62 (82) 98 Nasal Cannula 2.0 97.4 04/04/21 07:15 Nasal Cannula 2.0 04/04/21 07:14 98.0 83 18 140/71 (94) 98 Nasal Cannula 2.0 98.0 04/04/21 03:19 98.3 84 18 152/68 (96) 97 Nasal Cannula 2.0 98.3 04/03/21 23:19 98.1 84 18 140/80 (100) 100 Nasal Cannula 2.0 98.1 04/03/21 20:00 Nasal Cannula 2.0 04/03/21 19:20 97.7 79 18 146/70 (95) 100 Nasal Cannula 3.0 97.7 Labs Labs Laboratory Tests Test 04/04/21 06:25 Prothrombin Time 26.4 SEC (11.7-14.0) Prothromb Time International Ratio 2.4 (0.8-1.1) Physical Exam Physical Exam Chest clear Heart regular rate and rhythm Abdomen soft, nontender, normal bowel sounds, no masses Assessment Assessment Abdominal pain. Source is unclear and probably is not related to the pancreatic abnormality seen on previous imaging. Fortunately it has improved and she is tolerating her diet. Abnormal pancreas on imaging. This could represent a benign lesion or a malignant lesion. Fortunately labs including lipase CA 19-9 and CEA are all normal. This does not rule out malignancy but speaks against it. As discussed by surgery, she is not a good surgical candidate and percutaneous biopsy would be high risk in this patient. EUS with fine-needle aspiration would be an option if patient and family are agreeable but would have to be set up in the outpatient setting. Since she is improved, no further GI tests are recommended at this time. EUS can be arranged later in the outpatient setting Dr. Peraza will assume her GI care tomorrow Justicifation of Admission Dx: Justifications for Admission: Justification of Admission Dx: N/A JULIÁN PEREZ MD Apr 04, 2021 14:14
[2021-04-04 14:41] VITALS: BP 126/57
[2021-04-04] MEDS: WARFARIN 4 MG TABLET. PO SCH (17:17)
--- NOTE | 2021-04-04 18:06 | PN ---
DATE: 04/04/2021 SUBJECTIVE: The patient is resting, slightly propped up in bed, in no apparent respiratory distress. On questioning her, she stated that she has not slept well as she is incontinent of urine. She advanced her diet yesterday and apparently she did not eat much and said that made her sick. PHYSICAL EXAMINATION: GENERAL: When I examined her this morning, she looked well and was clearly in no apparent respiratory distress. No pallor, jaundice, cyanosis, or thyromegaly. No jugular venous distention. No lower limb edema. VITAL SIGNS: Her heart rate was 83, blood pressure was 140/71, temperature was 98, respiratory rate was 18 and oxygen saturation was 98% on 2 liters of oxygen. HEAD, EYES, EARS, NOSE AND THROAT: Normocephalic, atraumatic. NECK: Supple. HEART: Showed normal first and second heart sounds. No gallop or murmur. CHEST: Clear to auscultation. No crepitation or rhonchi. ABDOMEN: Scaphoid, soft, nontender. NEUROLOGIC: She was legally blind, hard of hearing. All other cranial nerves intact. She moves extremities without difficulty, although she is mostly bedbound. Her intake was 750, no output was recorded. LABORATORY DATA: This morning showed serum sodium 146, potassium 3.9, chloride 109, bicarbonate 31, anion gap of 6, BUN 13, creatinine 0.9. Estimated GFR was 59 mL per minute. Her glucose 96, calcium was 8.9. Total bilirubin, AST, ALT, alkaline phosphatase were normal. Total protein 5.3, albumin 2.5. Her carcinoembryonic antigen and CA 19-9 are 3.9 and 10, which both are well within normal range including possibility of pancreatic cancer. ASSESSMENT: 1. Abdominal pain, the etiology of which is not clear. She is status post cholecystectomy. She was diagnosed with pancreatitis based on the CT scan finding; however, serum lipase has been consistently within normal range. Her CA 19-9 is negative. She is not a candidate for magnetic resonance cholangiopancreatography given that she has pacemaker. Obviously peptic ulcer disease is a possibility for which she is already on proton pump inhibitor. 2. The patient has multiple other medical problems including: A. Hypertension. B. Hyperlipidemia. C. Hypothyroidism. D. Generalized osteoarthritis . E. Age-related macular degeneration. She is actually considered legally blind. F. She has factor V Leiden for which she is on Coumadin. As of yesterday, her prothrombin time was 25.3, INR of 2.3. PLAN: To advance diet and await the hand umbrella tipper to see whether upper GI endoscopy is warranted to rule out possibility of peptic ulcer disease. KASSIE/KEVIN/JAY DR: Wilfrido TID: [id number]
[2021-04-04 19:20] VITALS: BP 156/77
[2021-04-04] MEDS: PATCH REMOVAL. MC SCH (21:00)
[2021-04-04 23:20] VITALS: BP 157/67
[2021-04-05 02:53] VITALS: BP 152/72
[2021-04-05 06:48] LABS: HEMATOCRIT 40.7 % (36.0-47.0); HEMOGLOBIN 13.5 g/dL (12.0-15.5); RED BLOOD COUNT 4.25 x10^6/uL (3.50-5.40); RED CELL DISTRIBUTION WIDTH 17.5 % (11.5-14.5); WHITE BLOOD COUNT 2.9 x10^3/uL (4.0-11.0)
[2021-04-05 06:59] VITALS: BP 143/72
[2021-04-05 07:07] LABS: PROTHROMBIN TIME PATIENT 24.4 SEC (11.7-14.0)
[2021-04-05 07:16] LABS: ALBUMIN 2.7 g/dL (3.4-5.0); ALBUMIN/GLOBULIN RATIO 0.8 (1.0-1.7); GFR 52.6; POTASSIUM 3.9 mmol/L (3.5-5.1); TOTAL BILIRUBIN 0.7 mg/dL (0.2-1.0); TOTAL PROTEIN 5.9 g/dL (6.4-8.2)
[2021-04-05] MEDS: LIDOCAINE (700MG/PATCH) PATCH. TD SCH ×2 (09:00→09:31)
[2021-04-05] MEDS: ACETAMINOPHEN 325 MG TABLET. PO PRN (09:30)
[2021-04-05] MEDS: SYSTANE OU SCH ×3 (09:31→16:04)
[2021-04-05] MEDS: PANTOPRAZOLE IV PUSH 40 MG VIAL. IVP SCH (09:31)
--- NOTE | 2021-04-05 10:20 | PN ---
DATE: 04/05/2021 SUBJECTIVE: The patient is resting, slightly propped up in bed in no apparent distress, sleepy, but arousable. On questioning her, denied any complaint. In fact, she has no more abdominal pain. She is tolerating her diet. PHYSICAL EXAMINATION: GENERAL: When I examined her, she looked well, in no apparent distress. No pallor, jaundice, cyanosis, or thyromegaly. No jugular venous distention. No lower limb edema. VITAL SIGNS: Her heart rate was 80, blood pressure was 143/72, temperature was 97.7, respiratory rate was 18 and oxygen saturation was 99% on 2 liters of oxygen. HEAD, EYES, EARS, NOSE AND THROAT: Normocephalic, atraumatic. NECK: Supple. HEART: Showed normal first and second heart sounds. No gallop or murmur. CHEST: Clear to auscultation. No crepitation or rhonchi. ABDOMEN: Distended, soft, nontender, no guarding or rigidity. No organomegaly. All hernial orifice intact. Bowel sounds normal. NEUROLOGIC: She was hard of hearing, is legally blind, but otherwise all her cranial nerves intact. She moves extremities without difficulty; however, she is mostly bedbound, chair bound. Her mobility has worsened, normally she walks with a walker and a wheelchair. LABORATORY DATA: As of this morning showed a white cell count of 2900, hemoglobin 13.5, hematocrit 40, MCV 96 and platelet count of 118,000. Her chemistry showed a serum sodium 146, potassium 3.9, chloride 108, bicarbonate was 34, anion gap of 4, BUN 12, creatinine 1, estimated GFR was 52 mL per minute. Her glucose 114, calcium was 9. Total bilirubin, AST, ALT, alkaline phosphatase were normal. Total protein 5.9, albumin was 2.7. ASSESSMENT: 1. Abdominal pain, the etiology of which is not clear. She is status post cholecystectomy. She was diagnosed with pancreatitis based on the CT scan finding; however, serum lipase has been consistently within normal range. Her CA 19-9 and CEA were all negative. She is not a candidate for magnetic resonance cholangiopancreatography given that she has a pacemaker and even if she is diagnosed with pancreatic cancer, she is not a candidate for surgical intervention. 2. The patient has multiple other medical problems including: A. Hypertension. B. Hyperlipidemia. C. Hypothyroidism. D. Generalized osteoarthritis. E. Age-related macular degeneration. She is actually considered legally blind. She has factor V Leiden for which she is on Coumadin. As of yesterday, her prothrombin time was 25.3 and INR 2.3. Her Lovenox was discontinued. PLAN: As the patient is tolerating her diet and has no more abdominal pain, I will consult the case management to see if she qualifies to go to [facility] for further rehabilitation before she goes to assisted living at [facility]. THOM DR: Wilfrido TID: [id number]
--- NOTE | 2021-04-05 10:32 | NUR ---
CHRISTOS following. Discussed with RN, pt from [facility] [place], 2L, GI soft. Therapy recommending SNF. CHRISTOS met with pt, pt agreeable and would like [facility]. Natasha at [facility] advised pt does not need a COVID swab to go to their SNF. Referral faxed to [facility], awaiting official acceptance decision. Dr. Whalen plans on discharging today. COVID swab ordered today in case [facility] denies acceptance. CHRISTOS will continue to follow. Addendum: 04/05/21 at 1504 by FRANK SHER Pt accepted at [facility]. [facility] arranged transportation for [id number]. RN notified.
[2021-04-05 10:33] VITALS: BP 159/69
[2021-04-05] MEDS ORDERED: WARF4TAB64 PO (13:11)
--- NOTE | 2021-04-05 13:13 | SNU/HH DC ---
DISCHARGE ORDERS DISCHARGE INFORMATION: DISCHARGE DATE: Apr 05, 2021 FINAL DIAGNOSIS abdominal pain chronic pancreatitis CONDITION ON DISCHARGE: Stable CODE STATUS: Code Status: DNR/DNI HALFWAY: SNF STAY <30 DAYS: Yes POST DISCHARGE ORDERS: ACTIVITY ORDERS: Activity as tolerated, Avoid exertion WEIGHT BEARING STATUS: As tolerated BATHING ORDERS: Shower-keep dressing dry DIET AFTER DISCHARGE: Cardiac TREATMENT/EQUIPMENT ORDERS: Physical Therapy For: Evalulation/Treatment Occupational Therapy For: Evaluation/Treatment Speech Language Pathology For: Evaluation/Treatment DISCHARGE MEDICATIONS: Home Meds Active Scripts Warfarin Sodium (WARFARIN SODIUM) 4 Mg Tablet, 4 MG PO DAILY for dvt for 30 Days, #30 TAB Prov:JEF LIANG MD 04/05/21 Reported Medications Propylene Glycol/Peg 400 (SYSTANE 0.3-0.4% EYE DROPS) 15 Ml Drops, 1 DROP EACHEYE QID for supplement, #30 ML 5 Refills 04/01/21 Carvedilol (CARVEDILOL ) 6.25 Mg Tablet, 6.25 MG PO BIDWMEALS, TAB 06/01/16 Furosemide (FUROSEMIDE) 20 Mg Tablet, 20 MG PO DAILY, TAB 05/21/14 Magnesium Citrate (MAGNESIUM CITRATE) 296 Ml Solution, 148 ML PO DAILY PRN for CONSTIPATION 05/21/14 Calcium Polycarbophil (FIBER-TABS) 625 Mg Tablet, 625 MG PO TID 05/21/14 Potassium Chloride (POTASSIUM CHLORIDE) 20 Meq Tab.er.prt, 20 MEQ PO DAILY, TAB.SR 05/21/14 Temazepam (RESTORIL) 30 Mg Capsule, 30 MG PO HS PRN for INSOMNIA, CAP 05/21/14 Pantoprazole Sodium (PROTONIX ) 40 Mg Tablet.dr, 40 MG PO DAILY, TAB 05/21/14 Cyclosporine (RESTASIS) 1 Each Droperette, 1 EACH OP BID 05/21/14 Bupropion Hcl (WELLBUTRIN XL) 150 Mg Tab.er.24h, 150 MG PO BID, TAB.SR 05/21/14 Amiodarone Hcl (AMIODARONE HCL) 200 Mg Tablet, 200 MG PO DAILY 05/21/14 Levothyroxine Sodium (LEVOTHYROXINE SODIUM) 88 Mcg Tablet, 88 MCG PO DAILYAC for THYROID SUPPLEMENT, #30 TAB 0 Refills 05/21/14 Acetaminophen (TYLENOL) 325 Mg Tablet, 650 MG PO TID PRN for PAIN 05/21/14 Magnesium Oxide (MAGNESIUM OXIDE) 400 Mg Tablet, 400 MG PO DAILY 05/21/14 Dicyclomine Hcl (BENTYL) 20 Mg Tablet, 20 MG PO TID, TAB 05/21/14 Atorvastatin Calcium (ATORVASTATIN CALCIUM) 40 Mg Tablet, 40 MG PO DAILY for FOR CHOLESTEROL, #30 TAB 0 Refills 05/21/14 Aspirin (ASPIRIN EC) 81 Mg Tablet.dr, 81 MG PO DAILY 05/21/14 Ferrous Sulfate (FERROUS SULFATE) 325 Mg Tablet, 325 MG PO DAILY 05/21/14 Ascorbic Acid (ASCORBIC ACID) 500 Mg Tablet, 500 MG PO DAILY 05/21/14 Discontinued Reported Medications Warfarin Sodium (WARFARIN SODIUM) 5 Mg Tablet, 5 MG PO DAILY, TAB 06/01/16 JEF LIANG MD Apr 05, 2021 13:13
[2021-04-05 14:31] VITALS: BP 132/59
--- NOTE | 2021-04-05 15:56 | NUR ---
Call for report attempted to Travis Rivas, voicemail left.
[2021-04-05] MEDS: WARFARIN 4 MG TABLET. PO SCH (16:04)
--- NOTE | 2021-04-05 17:14 | PDOC ---
SURGICAL PROGRESS NOTE DATE: 04/05/21 TIME: 17:13 Subjective Pt reports feeling better, larry diet Vital Signs Vital Signs Date Time Temp Pulse Resp B/P (MAP) Pulse Ox O2 Delivery O2 Flow Rate FiO2 04/05/21 14:31 98.2 80 18 132/59 (83) 97 Room Air 98.2 04/05/21 10:33 2.0 I&O Intake and Output 04/05/21 06:59 Intake Total 480 ml Balance 480 ml Intake Oral 480 ml # Voids 3 General: Alert, Cooperative, No acute distress Abdomen: Soft, No tenderness Labs Laboratory Tests Test 04/04/21 06:25 04/05/21 06:10 04/05/21 09:50 Prothrombin Time 26.4 SEC (11.7-14.0) 24.4 SEC (11.7-14.0) Prothromb Time International Ratio 2.4 (0.8-1.1) 2.2 (0.8-1.1) White Blood Count 2.9 x10^3/uL (4.0-11.0) Red Blood Count 4.25 x10^6/uL (3.50-5.40) Hemoglobin 13.5 g/dL (12.0-15.5) Hematocrit 40.7 % (36.0-47.0) Mean Corpuscular Volume 96 fL (79-100) Mean Corpuscular Hemoglobin 32 pg (25-35) Mean Corpuscular Hemoglobin Concent 33 g/dL (31-37) Red Cell Distribution Width 17.5 % (11.5-14.5) Platelet Count 118 x10^3/uL (140-400) Sodium Level 146 mmol/L (136-145) Potassium Level 3.9 mmol/L (3.5-5.1) Chloride Level 108 mmol/L (98-107) Carbon Dioxide Level 34 mmol/L (21-32) Anion Gap 4 (6-14) Blood Urea Nitrogen 12 mg/dL (7-20) Creatinine 1.0 mg/dL (0.6-1.0) Estimated GFR (Cockcroft-Gault) 52.6 BUN/Creatinine Ratio 12 (6-20) Glucose Level 114 mg/dL (70-99) Calcium Level 9.0 mg/dL (8.5-10.1) Total Bilirubin 0.7 mg/dL (0.2-1.0) Aspartate Amino Transf (AST/SGOT) 16 U/L (15-37) Alanine Aminotransferase (ALT/SGPT) 12 U/L (14-59) Alkaline Phosphatase 73 U/L (46-116) Total Protein 5.9 g/dL (6.4-8.2) Albumin 2.7 g/dL (3.4-5.0) Albumin/Globulin Ratio 0.8 (1.0-1.7) SARS-CoV-2 RNA (MARIA DOLORES) Negative (Negative) Laboratory Tests Test 04/05/21 06:10 04/05/21 09:50 White Blood Count 2.9 x10^3/uL (4.0-11.0) Red Blood Count 4.25 x10^6/uL (3.50-5.40) Hemoglobin 13.5 g/dL (12.0-15.5) Hematocrit 40.7 % (36.0-47.0) Mean Corpuscular Volume 96 fL (79-100) Mean Corpuscular Hemoglobin 32 pg (25-35) Mean Corpuscular Hemoglobin Concent 33 g/dL (31-37) Red Cell Distribution Width 17.5 % (11.5-14.5) Platelet Count 118 x10^3/uL (140-400) Prothrombin Time 24.4 SEC (11.7-14.0) Prothromb Time International Ratio 2.2 (0.8-1.1) Sodium Level 146 mmol/L (136-145) Potassium Level 3.9 mmol/L (3.5-5.1) Chloride Level 108 mmol/L (98-107) Carbon Dioxide Level 34 mmol/L (21-32) Anion Gap 4 (6-14) Blood Urea Nitrogen 12 mg/dL (7-20) Creatinine 1.0 mg/dL (0.6-1.0) Estimated GFR (Cockcroft-Gault) 52.6 BUN/Creatinine Ratio 12 (6-20) Glucose Level 114 mg/dL (70-99) Calcium Level 9.0 mg/dL (8.5-10.1) Total Bilirubin 0.7 mg/dL (0.2-1.0) Aspartate Amino Transf (AST/SGOT) 16 U/L (15-37) Alanine Aminotransferase (ALT/SGPT) 12 U/L (14-59) Alkaline Phosphatase 73 U/L (46-116) Total Protein 5.9 g/dL (6.4-8.2) Albumin 2.7 g/dL (3.4-5.0) Albumin/Globulin Ratio 0.8 (1.0-1.7) SARS-CoV-2 RNA (MARIA DOLORES) Negative (Negative) Assessment/Plan abd pain, etiology unclear, favor pancreatitis appears improved on conservative management and would not favor additional interventions OK to d/c Justicifation of Admission Dx: Justifications for Admission: Justification of Admission Dx: N/A ANNITA URBINA MD Apr 05, 2021 17:14
--- NOTE | 2021-04-05 17:36 | PDOC ---
G I PROGRESS NOTE Reason for Follow-up Abd pain/nausea Subjective Tolerating po/wants to go home Physical Exam Lungs clear CV S1 S2 ABD +BS, soft, nontender Review of Relevant I have reviewed the following items nela (where applicable) has been applied. Labs Laboratory Tests Test 04/04/21 06:25 04/05/21 06:10 04/05/21 09:50 Prothrombin Time 26.4 SEC (11.7-14.0) 24.4 SEC (11.7-14.0) Prothromb Time International Ratio 2.4 (0.8-1.1) 2.2 (0.8-1.1) White Blood Count 2.9 x10^3/uL (4.0-11.0) Red Blood Count 4.25 x10^6/uL (3.50-5.40) Hemoglobin 13.5 g/dL (12.0-15.5) Hematocrit 40.7 % (36.0-47.0) Mean Corpuscular Volume 96 fL (79-100) Mean Corpuscular Hemoglobin 32 pg (25-35) Mean Corpuscular Hemoglobin Concent 33 g/dL (31-37) Red Cell Distribution Width 17.5 % (11.5-14.5) Platelet Count 118 x10^3/uL (140-400) Sodium Level 146 mmol/L (136-145) Potassium Level 3.9 mmol/L (3.5-5.1) Chloride Level 108 mmol/L (98-107) Carbon Dioxide Level 34 mmol/L (21-32) Anion Gap 4 (6-14) Blood Urea Nitrogen 12 mg/dL (7-20) Creatinine 1.0 mg/dL (0.6-1.0) Estimated GFR (Cockcroft-Gault) 52.6 BUN/Creatinine Ratio 12 (6-20) Glucose Level 114 mg/dL (70-99) Calcium Level 9.0 mg/dL (8.5-10.1) Total Bilirubin 0.7 mg/dL (0.2-1.0) Aspartate Amino Transf (AST/SGOT) 16 U/L (15-37) Alanine Aminotransferase (ALT/SGPT) 12 U/L (14-59) Alkaline Phosphatase 73 U/L (46-116) Total Protein 5.9 g/dL (6.4-8.2) Albumin 2.7 g/dL (3.4-5.0) Albumin/Globulin Ratio 0.8 (1.0-1.7) SARS-CoV-2 RNA (MARIA DOLORES) Negative (Negative) Laboratory Tests Test 04/05/21 06:10 04/05/21 09:50 White Blood Count 2.9 x10^3/uL (4.0-11.0) Red Blood Count 4.25 x10^6/uL (3.50-5.40) Hemoglobin 13.5 g/dL (12.0-15.5) Hematocrit 40.7 % (36.0-47.0) Mean Corpuscular Volume 96 fL (79-100) Mean Corpuscular Hemoglobin 32 pg (25-35) Mean Corpuscular Hemoglobin Concent 33 g/dL (31-37) Red Cell Distribution Width 17.5 % (11.5-14.5) Platelet Count 118 x10^3/uL (140-400) Prothrombin Time 24.4 SEC (11.7-14.0) Prothromb Time International Ratio 2.2 (0.8-1.1) Sodium Level 146 mmol/L (136-145) Potassium Level 3.9 mmol/L (3.5-5.1) Chloride Level 108 mmol/L (98-107) Carbon Dioxide Level 34 mmol/L (21-32) Anion Gap 4 (6-14) Blood Urea Nitrogen 12 mg/dL (7-20) Creatinine 1.0 mg/dL (0.6-1.0) Estimated GFR (Cockcroft-Gault) 52.6 BUN/Creatinine Ratio 12 (6-20) Glucose Level 114 mg/dL (70-99) Calcium Level 9.0 mg/dL (8.5-10.1) Total Bilirubin 0.7 mg/dL (0.2-1.0) Aspartate Amino Transf (AST/SGOT) 16 U/L (15-37) Alanine Aminotransferase (ALT/SGPT) 12 U/L (14-59) Alkaline Phosphatase 73 U/L (46-116) Total Protein 5.9 g/dL (6.4-8.2) Albumin 2.7 g/dL (3.4-5.0) Albumin/Globulin Ratio 0.8 (1.0-1.7) SARS-CoV-2 RNA (MARIA DOLORES) Negative (Negative) Medications Current Medications Enoxaparin Sodium (Lovenox 80mg Syringe) 80 mg Q12HR SQ Last administered on 04/03/21 08:10; Start 04/01/21 at 21:00; Stop 04/03/21 at 08:23; Status DC Lidocaine (Lidoderm) 2 patch DAILY TD Last administered on 04/04/21 08:31; Start 04/02/21 at 09:00 Ondansetron HCl (Zofran Odt) 4 mg PRN Q6HRS PRN PO NAUSEA/VOMITING; Start 04/01/21 at 18:30 Pantoprazole Sodium (PROTONIX VIAL for IV PUSH) 40 mg DAILYAC IVP Last administered on 04/05/21 09:31; Start 04/02/21 at 07:30 Warfarin Sodium (Coumadin) 4 mg DAILY16 PO Last administered on 04/05/21 16:04; Start 04/02/21 at 16:00 Warfarin Sodium (Coumadin Per Physician) 1 each PRN DAILY PRN MC SEE COMMENTS Last administered on 04/04/21 10:41; Start 04/01/21 at 18:30 Fentanyl Citrate (Fentanyl 2ml Vial) 25 mcg PRN Q3HRS PRN IVP PAIN; Start 04/01/21 at 18:30 Miscellaneous (Lidoderm Patch Removal) 1 ea QHS MC ; Start 04/01/21 at 21:00 Glycerin/ Hypromellose/ Polyethylene (Artificial Tears) 1 drop QID OU ; Start 04/01/21 at 21:00; Status Cancel Non-Formulary Medication (Systane) 1 ea QID OU Last administered on 04/05/21 16:04; Start 04/01/21 at 21:00 Acetaminophen (Tylenol) 650 mg PRN Q6HRS PRN PO MILD PAIN / TEMP > 100.3'F Last administered on 04/05/21 09:30; Start 04/04/21 at 08:30 Active Scripts Active Warfarin Sodium 4 Mg Tablet 4 Mg PO DAILY 30 Days Reported Systane 0.3-0.4% Eye Drops (Propylene Glycol/Peg 400) 15 Ml Drops 1 Drop EACHEYE QID Carvedilol (Carvedilol) 6.25 Mg Tablet 6.25 Mg PO BIDWMEALS Furosemide 20 Mg Tablet 20 Mg PO DAILY Magnesium Citrate 296 Ml Solution 148 Ml PO DAILY PRN Fiber-Tabs (Calcium Polycarbophil) 625 Mg Tablet 625 Mg PO TID Potassium Chloride 20 Meq Tab.er.prt 20 Meq PO DAILY Restoril (Temazepam) 30 Mg Capsule 30 Mg PO HS PRN Protonix (Pantoprazole Sodium) 40 Mg Tablet.dr 40 Mg PO DAILY Restasis (Cyclosporine) 1 Each Droperette 1 Each OP BID Wellbutrin Xl (Bupropion Hcl) 150 Mg Tab.er.24h 150 Mg PO BID Amiodarone Hcl 200 Mg Tablet 200 Mg PO DAILY Levothyroxine Sodium 88 Mcg Tablet 88 Mcg PO DAILYAC Tylenol (Acetaminophen) 325 Mg Tablet 650 Mg PO TID PRN Magnesium Oxide 400 Mg Tablet 400 Mg PO DAILY Bentyl (Dicyclomine Hcl) 20 Mg Tablet 20 Mg PO TID Atorvastatin Calcium 40 Mg Tablet 40 Mg PO DAILY Aspirin Ec (Aspirin) 81 Mg Tablet.dr 81 Mg PO DAILY Ferrous Sulfate 325 Mg Tablet 325 Mg PO DAILY Ascorbic Acid 500 Mg Tablet 500 Mg PO DAILY Vitals/I & O Vital Sign - Last 24 Hours 04/04/21 04/04/21 04/04/21 04/05/21 19:20 20:00 23:20 02:53 Temp 98.0 98.1 98.2 98.0 98.1 98.2 Pulse 80 80 80 Resp 18 18 18 B/P (MAP) 156/77 (103) 157/67 (97) 152/72 (98) Pulse Ox 98 98 98 O2 Delivery Nasal Cannula Nasal Cannula Nasal Cannula Nasal Cannula O2 Flow Rate 2.0 2.0 2.0 2.0 04/05/21 04/05/21 04/05/21 04/05/21 06:59 07:20 10:33 14:31 Temp 97.7 97.9 98.2 97.7 97.9 98.2 Pulse 80 80 80 Resp 18 18 18 B/P (MAP) 143/72 (95) 159/69 (99) 132/59 (83) Pulse Ox 99 98 97 O2 Delivery Nasal Cannula Nasal Cannula Nasal Cannula Room Air O2 Flow Rate 2.0 2.0 2.0 Intake and Output 04/04/21 04/04/21 04/05/21 15:00 23:00 07:00 Intake Total 480 ml Balance 480 ml Problem List Abd pain- most likely multifactorial in etiology, cpm, no further work-up advised in view of age Justicifation of Admission Dx: Justifications for Admission: Justification of Admission Dx: N/A KENRICK HUTSON MD Apr 05, 2021 17:36
--- NOTE | 2021-04-05 18:29 | NUR ---
Pt. discharge to [place] per via transportation service. Packet with tow car driver.
== END 2021-04-05 18:30 | DRG 391 ==
LOC: 4 NORTH 18:00
PROVIDERS: ADMIT Internal Medicine; ATTEND Internal Medicine
DX: R10.9 Unspecified abdominal pain (principal); G93.41 Metabolic encephalopathy; D68.51 Activated protein C resistance; E03.9 Hypothyroidism, unspecified; E78.5 Hyperlipidemia, unspecified; H35.30 Unspecified macular degeneration; H54.8 Legal blindness, as defined in USA; I11.0 Hypertensive heart disease with heart failure; I25.10 Atherosclerotic heart disease of native coronary artery without angina pectoris; I48.91 Unspecified atrial fibrillation; I50.9 Heart failure, unspecified; G62.9 Polyneuropathy, unspecified; K57.30 Diverticulosis of large intestine without perforation or abscess without bleeding; Z86.718 Personal history of other venous thrombosis and embolism; M15.9 Polyosteoarthritis, unspecified; M81.0 Age-related osteoporosis without current pathological fracture; Z79.01 Long term (current) use of anticoagulants; Z80.0 Family history of malignant neoplasm of digestive organs; Z80.3 Family history of malignant neoplasm of breast; Z82.3 Family history of stroke; Z85.828 Personal history of other malignant neoplasm of skin; Z86.73 Personal history of transient ischemic attack (TIA), and cerebral infarction without residual deficits; Z87.891 Personal history of nicotine dependence; Z90.49 Acquired absence of other specified parts of digestive tract; Z90.710 Acquired absence of both cervix and uterus; Z95.810 Presence of automatic (implantable) cardiac defibrillator; Z96.653 Presence of artificial knee joint, bilateral; Z98.41 Cataract extraction status, right eye; Z98.42 Cataract extraction status, left eye; Z88.0 Allergy status to penicillin; Z20.822 Contact with and (suspected) exposure to COVID-19
CPT/HCPCS: 36415; 80053; 82150; 82378; 83690; 85025; 85027; 85610; 86301; C9113; J1650; U0003; U0005; 97110-GP; 97530-GO; 97530-GP; G0378